=== PATIENT | male | born 1990 | race Two or more races ===

== ENCOUNTER 2019-03-02 21:25 | Emergency (ER) | payer SELFPAY ==
[~2019-03-02] VITALS: Ht 180.3 cm; Wt 95.3 kg
[2019-03-02 21:44] VITALS: BP 131/83
[2019-03-02] MEDS ORDERED: BACITRACIN ZINC OINT PACKET 1 EA PACKET TP ONE ×2 (22:54→23:00)
[2019-03-02] MEDS ORDERED: ACETAMINOPHEN ES 500 MG TABLET ONE (22:54)
== END 2019-03-02 22:55 | disposition home or self-care (01) ==
LOC: ER 21:28
DX: T23.151A Burn of first degree of right palm, initial encounter (principal); X19.XXXA Contact with other heat and hot substances, initial encounter; Y93.89 Activity, other specified; Y92.89 Other specified places as the place of occurrence of the external cause; Y99.8 Other external cause status